=== PATIENT | female | born 1940 | race Caucasian/White ===

== ENCOUNTER → 2020-04-21 | Outpatient (CLI) | payer MEDICARE ==
[2015-02-24 10:16] VITALS: BP 148/80
[~2020-04-21] MED LIST: BENADRYL25 M2 PO; BP MED; THYROID; ZYRTEC 10MG10 MG PO
== END ==
LOC: LAB 08:00
DX: L03.90 Cellulitis, unspecified (principal)

== ENCOUNTER → 2021-09-04 | Outpatient (CLI) | payer MEDICARE ==
[2021-09-04 15:42] LABS: BASO # 0.03 K/mm3 (0.02-0.10); EOS # 0.17 K/mm3 (0.04-0.40); EOS % 2.9 % (1.0-5.0); HEMATOCRIT 39.5 % (37.0-47.0); HEMOGLOBIN 13.2 g/dL (12.5-16.0); LYMPH# 1.64 K/mm3 (1.50-4.00); MEAN CELL VOLUME 90 fl (78-100); MEAN CORPUSCULAR HEMOGLOBIN 30 pg (27-31); MEAN CORPUSCULAR HGB CONC 33 g/dL (33-37); MEAN PLATELET VOLUME 9.5 fl (7.4-10.4); MONO # 0.55 K/mm3 (0.20-0.80); NEU # 3.39 K/mm3 (1.40-6.50); PLATELET COUNT 183 K/mm3 (130-400); RED BLOOD COUNT 4.37 M/mm3 (4.10-5.30); RED CELL DISTRIBUTION WIDTH 12.5 % (11.5-14.5); WHITE BLOOD COUNT 5.8 K/mm3 (4.8-10.8)
[2021-09-04 15:56] LABS: POTASSIUM 3.7 mmol/L (3.5-5.1)
[2021-09-04 15:57] LABS: CALCIUM 9.1 mg/dL (8.3-10.5)
[2021-09-04 15:59] LABS: TOTAL PROTEIN 6.4 g/dL (6.2-8.1)
[2021-09-04 16:01] LABS: TOTAL BILIRUBIN 1.2 mg/dL (0.2-1.2)
== END ==
LOC: LAB 15:19
PROVIDERS: Internal Medicine
DX: E11.9 Type 2 diabetes mellitus without complications (principal); E03.4 Atrophy of thyroid (acquired); M85.80 Other specified disorders of bone density and structure, unspecified site

== ENCOUNTER → 2022-03-09 | Outpatient (CLI) | payer MEDICARE ==
[2022-03-09 14:28] LABS: URINE WBC 0 /hpf (0-3)
[2022-03-09 14:33] LABS: URINE APPEARANCE CLEAR; URINE COLOR YELLOW
[2022-03-09 14:34] LABS: URINE BILIRUBIN NEGATIVE (NEGATIVE); URINE BLOOD 250 ery/uL (NEGATIVE); URINE GLUCOSE NEGATIVE (NEGATIVE); URINE KETONE NEGATIVE (NEGATIVE); URINE LEUKOCYTE ESTERASE NEGATIVE (NEGATIVE); URINE MUCUS PRESENT (NOT PRESENT); URINE NITRATE NEGATIVE (NEGATIVE); URINE PROTEIN(semi-quant) TRACE (NEGATIVE); URINE UROBILINOGEN NORMAL (NORMAL)
[2022-03-09 14:35] LABS: ALBUMIN 4.4 g/dL (3.4-4.8); BASO # 0.03 K/mm3 (0.02-0.10); EOS % 3.9 % (1.0-5.0); HEMATOCRIT 43.7 % (37.0-47.0); HEMOGLOBIN 14.8 g/dL (12.5-16.0); MEAN CELL VOLUME 91 fl (78-100); MEAN CORPUSCULAR HEMOGLOBIN 31 pg (27-31); MEAN CORPUSCULAR HGB CONC 34 g/dL (33-37); MEAN PLATELET VOLUME 9.5 fl (7.4-10.4); MONO # 0.51 K/mm3 (0.20-0.80); NEU # 3.14 K/mm3 (1.40-6.50); PLATELET COUNT 208 K/mm3 (130-400); POTASSIUM 3.7 mmol/L (3.5-5.1); RED BLOOD COUNT 4.81 M/mm3 (4.10-5.30); RED CELL DISTRIBUTION WIDTH 13.1 % (11.5-14.5); WHITE BLOOD COUNT 5.1 K/mm3 (4.8-10.8)
[2022-03-09 14:36] LABS: CALCIUM 9.9 mg/dL (8.3-10.5)
[2022-03-09 14:37] LABS: TOTAL PROTEIN 7.5 g/dL (6.2-8.1)
[2022-03-09 14:39] LABS: TOTAL BILIRUBIN 1.3 mg/dL (0.2-1.2)
[2022-03-10] LABS: CREATININE OTHER SOURCE 18 mg/dL (())
== END ==
LOC: LAB 14:10
PROVIDERS: Internal Medicine
DX: Z12.31 Encounter for screening mammogram for malignant neoplasm of breast (principal); E11.9 Type 2 diabetes mellitus without complications; E03.4 Atrophy of thyroid (acquired); F41.8 Other specified anxiety disorders; M85.80 Other specified disorders of bone density and structure, unspecified site

== ENCOUNTER → 2022-03-16 | Outpatient (CLI) | payer MEDICARE | LOC: RAD 12:47 → MAMMO 13:45 | DX: Z12.31 Encounter for screening mammogram for malignant neoplasm of breast (principal); M85.80 Other specified disorders of bone density and structure, unspecified site ==

== ENCOUNTER → 2022-03-16 | Outpatient (CLI) | payer MEDICARE | LOC: MAMMO 12:49 | DX: Z12.31 Encounter for screening mammogram for malignant neoplasm of breast (principal) ==

== ENCOUNTER → 2022-09-24 | Outpatient (CLI) | payer MEDICARE | LOC: RAD 07:36 | DX: R05.9 Cough, unspecified (principal) ==

== ENCOUNTER → 2023-11-07 | Outpatient (CLI) | payer MEDICARE ==
[2023-11-07 12:19] LABS: BASO # 0.04 K/mm3 (0.02-0.10); EOS # 0.13 K/mm3 (0.04-0.40); EOS % 1.7 % (1.0-5.0); HEMOGLOBIN 14.3 g/dL (12.5-16.0); LYMPH# 1.69 K/mm3 (1.50-4.00); MEAN CELL VOLUME 93 fl (78-100); MEAN CORPUSCULAR HEMOGLOBIN 32 pg (27-31); MEAN CORPUSCULAR HGB CONC 34 g/dL (33-37); MEAN PLATELET VOLUME 10.1 fl (7.4-10.4); MONO # 0.58 K/mm3 (0.20-0.80); NEU # 5.22 K/mm3 (1.40-6.50); PLATELET COUNT 206 K/mm3 (130-400); RED BLOOD COUNT 4.53 M/mm3 (4.10-5.30); RED CELL DISTRIBUTION WIDTH 13.3 % (11.5-14.5); WHITE BLOOD COUNT 7.7 K/mm3 (4.8-10.8)
[2023-11-07 12:26] LABS: ALBUMIN 4.6 g/dL (3.4-4.8)
[2023-11-07 12:27] LABS: CALCIUM 10.1 mg/dL (8.3-10.5)
[2023-11-07 12:29] LABS: PH-URINE 7.5 (5.0 - 8.0); TOTAL PROTEIN 7.1 g/dL (6.2-8.1); URINE APPEARANCE CLEAR (CLEAR); URINE BILIRUBIN NEGATIVE (NEGATIVE); URINE COLOR YELLOW (YELLOW); URINE GLUCOSE NEGATIVE (NEGATIVE); URINE KETONE NEGATIVE (NEGATIVE); URINE LEUKOCYTE ESTERASE NEGATIVE (NEGATIVE); URINE NITRATE NEGATIVE (NEGATIVE); URINE PROTEIN(semi-quant) NEGATIVE (NEGATIVE)
[2023-11-07 12:30] LABS: URINE BLOOD TRACE-INTACT (NEGATIVE)
[2023-11-07 12:35] LABS: URINE MUCUS PRESENT (NOT PRESENT)
== END ==
LOC: LAB 12:02
PROVIDERS: Internal Medicine
DX: E11.9 Type 2 diabetes mellitus without complications (principal); E03.4 Atrophy of thyroid (acquired); F41.8 Other specified anxiety disorders; E78.2 Mixed hyperlipidemia; K90.9 Intestinal malabsorption, unspecified

== ENCOUNTER → 2024-04-23 | Outpatient (CLI) | payer MEDICARE ==
[2024-04-23 14:22] LABS: ALBUMIN 4.3 g/dL (3.4-4.8)
[2024-04-23 14:23] LABS: CALCIUM 9.9 mg/dL (8.3-10.5)
[2024-04-23 14:25] LABS: TOTAL PROTEIN 6.8 g/dL (6.2-8.1)
[2024-04-23 14:26] LABS: TOTAL BILIRUBIN 1.4 mg/dL (0.2-1.2)
[2024-04-23 14:55] LABS: BASO # 0.04 K/mm3 (0.02-0.10); EOS # 0.17 K/mm3 (0.04-0.40); EOS % 2.8 % (1.0-5.0); HEMATOCRIT 41.5 % (37.0-47.0); HEMOGLOBIN 14.3 g/dL (12.5-16.0); LYMPH# 1.74 K/mm3 (1.50-4.00); MEAN CELL VOLUME 89 fl (78-100); MEAN CORPUSCULAR HEMOGLOBIN 31 pg (27-31); MEAN CORPUSCULAR HGB CONC 35 g/dL (33-37); MEAN PLATELET VOLUME 10.7 fl (7.4-10.4); MONO # 0.57 K/mm3 (0.20-0.80); NEU # 3.59 K/mm3 (1.40-6.50); PLATELET COUNT 172 K/mm3 (130-400); RED BLOOD COUNT 4.65 M/mm3 (4.10-5.30); WHITE BLOOD COUNT 6.1 K/mm3 (4.8-10.8)
== END ==
LOC: LAB 14:03
PROVIDERS: Internal Medicine
DX: E11.9 Type 2 diabetes mellitus without complications (principal); E78.2 Mixed hyperlipidemia; E03.4 Atrophy of thyroid (acquired); F41.8 Other specified anxiety disorders

== ENCOUNTER → 2024-04-23 | Outpatient (CLI) | payer OTHER | LOC: MAMMO 14:08 | DX: Z12.31 Encounter for screening mammogram for malignant neoplasm of breast (principal); M85.851 Other specified disorders of bone density and structure, right thigh ==

== ENCOUNTER → 2024-10-26 | Outpatient (CLI) | payer OTHER ==
[2024-10-26 12:04] LABS: BASO # 0.03 K/mm3 (0.02-0.10); EOS # 0.24 K/mm3 (0.04-0.40); EOS % 3.5 % (1.0-5.0); HEMATOCRIT 41.9 % (37.0-47.0); HEMOGLOBIN 14.4 g/dL (12.5-16.0); MEAN CELL VOLUME 91 fl (78-100); MEAN CORPUSCULAR HEMOGLOBIN 31 pg (27-31); MEAN CORPUSCULAR HGB CONC 34 g/dL (33-37); MEAN PLATELET VOLUME 9.4 fl (7.4-10.4); MONO # 0.48 K/mm3 (0.20-0.80); NEU # 4.88 K/mm3 (1.40-6.50); PLATELET COUNT 165 K/mm3 (130-400); RED BLOOD COUNT 4.61 M/mm3 (4.10-5.30); RED CELL DISTRIBUTION WIDTH 13.7 % (11.5-14.5); WHITE BLOOD COUNT 6.9 K/mm3 (4.8-10.8)
[2024-10-26 12:11] LABS: ALBUMIN 4.3 g/dL (3.4-4.8)
[2024-10-26 12:12] LABS: CALCIUM 9.7 mg/dL (8.3-10.5)
[2024-10-26 12:13] LABS: TOTAL PROTEIN 7.1 g/dL (6.2-8.1)
[2024-10-26 12:15] LABS: TOTAL BILIRUBIN 2.3 mg/dL (0.2-1.2)
[2024-10-26 12:20] LABS: MAGNESIUM 2.1 mg/dL (1.60-2.60)
[2024-10-26 12:57] LABS: URINE APPEARANCE CLEAR (CLEAR); URINE COLOR YELLOW (YELLOW)
[2024-10-26 12:58] LABS: PH-URINE 5.5 (5.0 - 8.0); URINE BILIRUBIN NEGATIVE (NEGATIVE); URINE BLOOD NEGATIVE (NEGATIVE); URINE GLUCOSE 2+ (NEGATIVE); URINE KETONE NEGATIVE (NEGATIVE); URINE NITRATE NEGATIVE (NEGATIVE); URINE PROTEIN(semi-quant) 2+ (NEGATIVE)
[2024-10-26 12:59] LABS: URINE LEUKOCYTE ESTERASE NEGATIVE (NEGATIVE); URINE WBC 0-1 /hpf (0-3)
[2024-10-26 13:00] LABS: URINE MUCUS PRESENT (NOT PRESENT)
== END ==
LOC: LAB 11:51
PROVIDERS: Internal Medicine
DX: E11.9 Type 2 diabetes mellitus without complications (principal); E03.4 Atrophy of thyroid (acquired); F41.8 Other specified anxiety disorders; E78.2 Mixed hyperlipidemia; K90.9 Intestinal malabsorption, unspecified